=== PATIENT | male | born 1990 | race Caucasian/White ===

== ENCOUNTER 2020-05-11 12:36 | Emergency (ER) | payer OTHER ==
[~2020-05-11] VITALS: Ht 172.7 cm; Wt 90.3 kg
[2020-05-11 12:54] VITALS: Ht 172.7 cm; Wt 90.3 kg
[2020-05-11] MEDS ORDERED: MUPIROCIN1 GM TOP (13:42)
[2020-05-11 14:18] VITALS: BP 122/76
== END 2020-05-11 14:18 | disposition home or self-care (01) ==
LOC: ED 12:36
DX: S61.211A Laceration without foreign body of left index finger without damage to nail, initial encounter (principal); Z88.0 Allergy status to penicillin; W26.0XXA Contact with knife, initial encounter; Y93.89 Activity, other specified; Y92.89 Other specified places as the place of occurrence of the external cause; Y99.8 Other external cause status
CPT/HCPCS: 90715; J2001